=== PATIENT | male | born 1975 | race Asian ===

== ENCOUNTER 2016-07-21 14:45 | Emergency (ER) | payer BC ==
[~2016-07-21] VITALS: Ht 172.7 cm; Wt 83.9 kg
[2016-07-21 14:45] VITALS: BP 138/94; PULSE 100; RESP 20; TEMP 96.5; O2SAT 94
--- NOTE | 2016-07-21 14:45 | NUR ---
Ambulatory to hallway chair 1 accompanied by [facility].
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
--- NOTE | 2016-07-21 15:00 | NUR ---
Dr. Earl evaluating pt at this time.
[2016-07-21 15:05] VITALS: BP 138/94; PULSE 100; RESP 20; TEMP 96.5; O2SAT 94
--- NOTE | 2016-07-21 15:05 | NUR ---
Patient given written and verbal discharge instructions and verbalizes understanding. ER MD discussed with patient the results and treatment provided. Patient in stable condition. ID arm band removed. No Rx given. Patient educated on pain management and to follow up with PMD. Pain Scale 0/10. Opportunity for questions provided and answered.
== END 2016-07-21 15:05 ==
LOC: SED 14:45
DX: Z02.89 Encounter for other administrative examinations (principal); F41.9 Anxiety disorder, unspecified; V89.2XXA Person injured in unspecified motor-vehicle accident, traffic, initial encounter; Y93.89 Activity, other specified; Y99.8 Other external cause status; Y92.89 Other specified places as the place of occurrence of the external cause
CPT/HCPCS: 99283